=== PATIENT | male | born 1950 | race Caucasian/White ===

== ENCOUNTER 2017-09-25 13:38 | Outpatient (RCR) | payer MEDICARE, OTHER | END 2017-12-24 | disposition home or self-care (01) | LOC: ONC 13:38 | PROVIDERS: ATTEND Radiology Radiation Oncology | DX: C61 Malignant neoplasm of prostate (principal) | CPT/HCPCS: 76873; 99205 ==

== ENCOUNTER 2018-03-26 14:00 | Outpatient (RCR) | payer MEDICARE, OTHER ==
[2018-04-03] MEDS ORDERED: LOSA1TAB20 PO (14:33)
[2018-04-10] MEDS ORDERED: CIPR-226 PO (12:05)
[2018-04-10] MEDS ORDERED: ACET1TAB43 PO (12:05)
[2018-04-12] MEDS ORDERED: CIPR-225 PO (20:46)
== END 2018-04-11 | disposition home or self-care (01) ==
LOC: ONC 14:00
PROVIDERS: ATTEND Radiology Radiation Oncology
DX: C61 Malignant neoplasm of prostate (principal)
CPT/HCPCS: 76873; 77331

== ENCOUNTER 2018-04-03 13:48 | Outpatient (CLI) | payer MEDICARE, OTHER ==
[~2018-04-03] VITALS: Ht 185.4 cm; Wt 113.4 kg
[2018-04-03] MEDS ORDERED: LOSA1TAB20 PO (14:33)
== END 2018-04-03 14:40 | disposition home or self-care (01) ==
LOC: PREOP 13:48
PROVIDERS: ATTEND Radiology Radiation Oncology
DX: Z01.818 Encounter for other preprocedural examination (principal)

== ENCOUNTER 2018-04-10 10:26 | Day surgery (SDC) | payer MEDICARE, OTHER ==
[~2018-04-10] VITALS: Ht 185.4 cm; Wt 113.4 kg
[~2018-04-10 10:26] MED LIST: LOSA1TAB20 PO
[2018-04-10 11:00] VITALS: BP 154/83
[2018-04-10] MEDS ORDERED: LEVOFLOXACIN 500 MG/D5W 100 ML (PRE-MIX) IV ONE (11:45)
[2018-04-10] MEDS ORDERED: LEVOFLOXACIN 500 MG/100 ML IV 100 ML IV ONE (11:45)
[2018-04-10] MEDS: LACTATED RINGERS 1,000 ML IV PRN ×2 (11:58→14:20)
--- NOTE | 2018-04-10 11:58 | Progress Note-Pre Operative ---
Pre-Operative Progress Note H&P Reviewed The H&P was reviewed, patient examined and no changes noted. Date Seen by Provider: Apr 10, 2018 Time Seen by Provider: 11:57 Date H&P Reviewed: Apr 10, 2018 Time H&P Reviewed: 11:57 Pre-Operative Diagnosis: Prostate cancer cT1c, PSA 4.68, [place] 6 CARMELITA LESTER MD Apr 10, 2018 11:58
--- NOTE | 2018-04-10 12:01 | Discharge Inst-Simple/Standard ---
Discharge Inst-Standard Discharge Medications New, Converted or Re-Newed RX: RX Given to Pt/Family Patient Instructions/Follow Up Plan of Care/Instructions/FU: 1) Follow up at [facility] for one month post implant scan 05/08/18 at 1:00 pm 2) Follow up with Dr. Dawn 05/10/18 at 10:30 am Activity as Tolerated: Yes Discharge Diet: No Restrictions Other Inst to Patient Instruct on how to remove cutler - check with Dr. Dawn - Thursday 04/12 or Sunday 04/15 morning CARMELITA LESTER MD Apr 10, 2018 12:01
[2018-04-10] MEDS ORDERED: ACET1TAB43 PO ×2 (12:05)
[2018-04-10] MEDS ORDERED: CIPR-226 PO ×2 (12:05)
[2018-04-10] MEDS ORDERED: LIDOCAINE PF 2% 2 ML (XYLOCAINE) VIAL ONE ×2 (12:28→12:29)
[2018-04-10] MEDS ORDERED: SEVOFLURANE (ULTANE) 15 ML INHAL SOLN ONE ×3 (12:28→13:52)
[2018-04-10] MEDS ORDERED: proPOfol 200 MG/20 ML (DIPRIVAN) VIAL IV ONE (12:28)
[2018-04-10] MEDS ORDERED: fentaNYL INJECTION 100 MCG/2 ML AMP ONE (12:29)
[2018-04-10] MEDS ORDERED: MIDAZOLAM 2 MG/2 ML (VERSED) VIAL ONE (12:31)
[2018-04-10] MEDS ORDERED: ONDANSETRON 4 MG/2 ML (SDV) Z0FRAN ONE (12:47)
[2018-04-10] MEDS ORDERED: ROCURONIUM 10 MG/ML 5 ML SYRINGE IV ONE (13:48)
[2018-04-10] MEDS ORDERED: GLYCOPYRROLATE 0.2 MG/ML (ROBINUL) 2 ML VIAL ONE (13:49)
[2018-04-10] MEDS ORDERED: NEOSTIGMINE 1 MG/ML 5 ML SYRINGE ONE (13:49)
--- NOTE | 2018-04-10 14:13 | Anesthesia-General Post-Op ---
General Patient Condition Mental Status/LOC: Same as Preop Cardiovascular: Satisfactory Nausea/Vomiting: Absent Respiratory: Satisfactory Pain: Controlled Complications: Absent Post Op Complications Complications None Follow Up Care/Instructions Patient Instructions None needed. Anesthesia/Patient Condition Patient Condition Patient is doing well, no complaints, stable vital signs, no apparent adverse anesthesia problems. No complications reported per nursing. FROY KAYE CRNA Apr 10, 2018 14:13
[2018-04-10] MEDS ORDERED: morphine INJ 10 MG/ML 1ML (SYR OR VIAL) IVP ONE (14:15)
--- NOTE | 2018-04-10 14:33 | Diagnostic Imaging Report ---
INDICATION: Brachytherapy. PROCEDURE: Fluoroscopy was provided for Dr. Jo during prostate brachytherapy. Multiple radiation seed implants are noted within the prostate gland. 13 seconds of fluoroscopy was utilized. IMPRESSION: Fluoroscopy for prostate brachytherapy. Dictated by: Dictated on workstation # [id number]
[2018-04-10 14:45] VITALS: BP 137/83
[2018-04-10 15:15] VITALS: BP 129/71
[2018-04-10 15:40] VITALS: BP 144/80
[2018-04-10 15:45] VITALS: BP 144/80
--- NOTE | 2018-04-10 15:52 | Progress Note-Post Operative ---
Post-Operative Progess Note Surgeon (s)/Lead Applier (s) Surgeon CARMELITA LESTER MD Lead Applier: Jami MENDEZ MD Pre-Operative Diagnosis Prostate cancer cT1c, PSA 4.68, [place] 6 Post-Operative Diagnosis Same as pre-op Procedure & Operative Findings Date of Procedure 04/10/18 Procedure Performed/Findings 100% Cesium 131 permanent prostate seed implant, cystogram and injection of biodegradable hydrogel prostate-rectal spacer utilizing the [employer] system Prostate volume 37.76 cc Anesthesia Type General Estimated Blood Loss Estimated blood loss (mL): Minimal Specimens/Packing Specimens Removed None Packing: None CARMELITA LESTER MD Apr 10, 2018 15:52
== END 2018-04-10 15:50 | disposition home or self-care (01) ==
LOC: SDC 10:26
PROVIDERS: ATTEND Radiology Radiation Oncology
DX: C61 Malignant neoplasm of prostate (principal); Z11.2 Encounter for screening for other bacterial diseases; I10 Essential (primary) hypertension; Z87.891 Personal history of nicotine dependence; E66.9 Obesity, unspecified; Z68.33 Body mass index [BMI] 33.0-33.9, adult; Z80.42 Family history of malignant neoplasm of prostate; Z79.899 Other long term (current) drug therapy
CPT/HCPCS: 76965; 77290; 77318; 77332; 77370; 77470; 77778; 87081

== ENCOUNTER 2018-04-12 19:17 | Emergency (ER) | payer MEDICARE, OTHER ==
[~2018-04-12] VITALS: Ht 185.4 cm; Wt 113.4 kg
[~2018-04-12 19:17] MED LIST changes: +ACET1TAB43 PO; +CIPR-226 PO
--- NOTE | 2018-04-12 20:06 | ED GU-Male ---
General Chief Complaint: -Male Stated Complaint: UNABLE TO URINATE Nursing Triage Note: Just had seed inplants for prostate ca. Took cutler out this morning and balloon was still sl inflated. Has only been able to urinate small amts. pain to umbilicus Source: patient Exam Limitations: no limitations History of Present Illness Date Seen by Provider: Apr 12, 2018 Time Seen by Provider: 19:26 Initial Comments Patient is a 67-year-old male who presents to the emergency room with complaints of unable to urinate. He reports that he had radioactive seeds planted and his prostate on 04/10/18 and had a Cutler in place until this morning when he was instructed to take out his Cutler catheter. He reports when he took the Cutler catheter out he did not remove the entire amount of saline and the balloon and pulled it out still partially inflated. And he reports that he did have a small amount of blood urinated for the first time after the Cutler catheter was removed. He reports that he has been able to urinate less than last throughout the day and since around 1800 today has not been able to void. He reports suprapubic abdominal pain to the level of his umbilicus and no urination. Timing/Duration: this morning Severity/Quality: cramping Location: suprapubic Radiation: none Associated Symptoms: other (unable to urinate.) Allergies and Home Medications Allergies Coded Allergies: No Known Drug Allergies (Unverified , 04/12/18) Home Medications Acetaminophen with Codeine 1 Each Tablet, 1 EACH PO PRN Prescribed by: CARMELITA LESTER on 04/10/18 1205 Ciprofloxacin HCl 250 Mg Tablet, 250 MG PO BID Prescribed by: CARMELITA LESTER on 04/10/18 1205 Ciprofloxacin HCl 500 Mg Tablet, 250 MG PO DAILY Prescribed by: NUSRAT METZ on 04/12/186 Losartan/Hydrochlorothiazide 1 Each Tablet, 1 EACH PO DAILY, (Reported) Patient Home Medication List Home Medication List Reviewed: Yes Review of Systems Review of Systems Constitutional: see HPI; No chills, No fever Genitourinary: see HPI, other (unable to urinate) All Other Systemes Reviewed Negative Unless Noted: Yes Past Fcwnkon-Jbwizi-Dkvzwx Hx Past Med/Social Hx: Reviewed Nursing Past Med/Soc Hx Patient Social History Alcohol Use: Occasionally Uses Number of Drinks Today: AA Alcohol Beverage of Choice: Beer Recreational Drug Use: No Smoking Status: Former Smoker Former Smoker, Quit: Apr 03, 2005 Recent Foreign Travel: No Contact w/Someone Who Travel: No Recent Infectious Disease Expo: No Recent Hopitalizations: Yes (prostate seed implant) Physical Abuse: No Sexual Abuse: No Mistreated: No Fear: No Immunizations Up To Date Tetanus Booster (TDap): Less than 5yrs Seasonal Allergies Seasonal Allergies: No Past Medical History Surgeries: Yes (KNEE SCOPE, ) Prostatectomy Respiratory: No Cardiac: Yes Hypertension Neurological: No Prostate Problems Gastrointestinal: No Musculoskeletal: No Endocrine: No Cancer: Yes Prostate Psychosocial: No Integumentary: No Blood Disorders: No Family Medical History Reviewed Nursing Family Hx Physical Exam Vital Signs Vital Signs - First Documented 04/12/18 19:26 Temp 98.3 Pulse 85 Resp 16 B/P (MAP) 198/103 (134) Pulse Ox 98 Capillary Refill : Less Than 3 Seconds Height, Weight, BMI Height: 6'1.00" Weight: 250lbs. 0.0oz. [id number]; 33.0 BMI Method:Stated General Appearance: WD/WN, no apparent distress Cardiovascular: normal peripheral pulses, regular rate, rhythm, no edema, no gallop, no JVD, no murmur Respiratory: chest non-tender, lungs clear, normal breath sounds, no respiratory distress, no accessory muscle use Gastrointestinal: normal bowel sounds, soft, no organomegaly, no pulsatile mass , tenderness (suprapubic tenderness.) Male: normal genitalia Neurologic/Psychiatric: alert, normal mood/affect, oriented x 3 Skin: normal color, warm/dry Progress/Results/Core Measures Suspected Sepsis Recent Fever Within 48 Hours: No Infection Criteria Present: None New/Unexplained Altered Menta: No Sepsis Screen: No Definite Risk SIRS Temperature:98.3 Pulse: 85 Respiratory Rate: 16 Blood Pressure 198 /103 Mean: 134 Results/Orders Lab Results Laboratory Tests Test 04/12/18 20:12 Range/Units Urine Color YELLOW Urine Clarity CLEAR Urine pH 7 5-9 Urine Specific [place] 1.005 L 1.016-1.022 Urine Protein NEGATIVE NEGATIVE Urine Glucose (UA) NEGATIVE NEGATIVE Urine Ketones NEGATIVE NEGATIVE Urine Nitrite NEGATIVE NEGATIVE Urine Bilirubin NEGATIVE NEGATIVE Urine Urobilinogen NORMAL NORMAL MG/DL Urine Leukocyte Esterase NEGATIVE NEGATIVE Urine RBC (Auto) 4+ H NEGATIVE Urine RBC 2-5 H /HPF Urine WBC RARE /HPF Urine Crystals NONE /LPF Urine Bacteria NEGATIVE /HPF Urine Casts NONE /LPF Urine Mucus NEGATIVE /LPF Urine Culture Indicated NO My Orders Orders - NUSRAT METZ Ua Culture If Indicated (04/12/18 19:21) Cutler Cath (04/12/18 19:21) Vital Signs/I&O 04/12/18 04/12/18 19:26 21:16 Temp 98.3 Pulse 85 78 Resp 16 16 B/P (MAP) 198/103 (134) 176/98 Pulse Ox 98 100 Capillary Refill : Less Than 3 Seconds Blood Pressure Mean: 134 Progress Note : Time: 20:06 Progress Note I have seen and evaluated the patient. Cutler catheter was placed and he had an immediate 1000 mL and return. Cutler was clamped at this time to prevent bladder spasms. The Cutler was unclamped after a short time and continued to have an additional 550 milliliters of urine output. The patient has been on ciprofloxacin 250 mg daily for prophylaxis against urinary tract infection. I will be continuing this for 3 more days. He agrees with plans for discharge with Cutler in place. Return precautions were given. Departure Impression Primary Impression: Urinary retention Disposition: HOME, SELF-CARE Condition: Stable/Unchanged Departure-Patient Inst. Decision time for Depature: 20:37 Referrals: ÓSCAR HANCOCK MD (PCP) Primary Care Physician Jami MENDEZ MD (Family) Primary Care Physician Patient Instructions: How to Care for Your Cutler Catheter, Male, Urinary Retention (DC) Add. Discharge Instructions: Take medication as directed. Leave the Cutler in place until you follow-up with your urologist on Sunday for further instructions. Return back to the emergency room for any worsening symptoms or concerns as needed. All discharge instructions reviewed with patient and/or family. Voiced understanding. Scripts Ciprofloxacin HCl (Cipro) 500 Mg Tablet 250 MG PO DAILY for 3 Days, #3 TAB Prov: NUSRAT METZ 04/12/18 NUSRAT METZ Apr 12, 2018 20:06
[2018-04-12 20:20] LABS: BILIRUBIN,URINE NEGATIVE (NEGATIVE); CLARITY,URINE CLEAR; COLOR,URINE YELLOW; GLUCOSE, URINE (UA) NEGATIVE (NEGATIVE); KETONES,URINE NEGATIVE (NEGATIVE); LEUKOCYTE ESTERASE ,URINE NEGATIVE (NEGATIVE); NITRITE,URINE NEGATIVE (NEGATIVE); PH,URINE 7 (5-9); PROTEIN,URINE NEGATIVE (NEGATIVE); UROBILINOGEN,URINE NORMAL (NORMAL)
[2018-04-12 20:28] LABS: BACTERIA,URINE NEGATIVE /HPF; WBC,URINE RARE /HPF
[2018-04-12] MEDS ORDERED: CIPR-225 PO (20:46)
[2018-04-12 21:16] VITALS: BP 176/98
== END 2018-04-12 21:08 | disposition home or self-care (01) ==
LOC: EDUNIT# 19:17 → ER 19:19
DX: R33.9 Retention of urine, unspecified (principal); I10 Essential (primary) hypertension; Z90.79 Acquired absence of other genital organ(s); Z85.46 Personal history of malignant neoplasm of prostate; Z96.0 Presence of urogenital implants; Z87.891 Personal history of nicotine dependence
CPT/HCPCS: 51702; 81000

== ENCOUNTER 2018-05-08 09:55 | Outpatient (RCR) | payer MEDICARE, OTHER ==
[~2018-05-08 09:55] MED LIST changes: +CIPR-225 PO
== END 2018-08-06 | disposition home or self-care (01) ==
LOC: ONC 09:55
PROVIDERS: ATTEND Radiology Radiation Oncology
DX: C61 Malignant neoplasm of prostate (principal); I10 Essential (primary) hypertension; Z87.891 Personal history of nicotine dependence; E66.9 Obesity, unspecified; Z68.33 Body mass index [BMI] 33.0-33.9, adult; Z80.42 Family history of malignant neoplasm of prostate; Z79.899 Other long term (current) drug therapy
CPT/HCPCS: 77290; 77295; 77336